=== PATIENT | male | born 1965 | race American Indian/Alaskan Native ===

== ENCOUNTER 2020-10-31 19:46 | Observation (INO) | payer BC ==
[2020-10-31] MEDS ORDERED: ASPIRIN 325 MG TAB PO ONE (20:19)
[2020-10-31 20:38] LABS: Basophils # (Auto) 0.1 K/mm3 (0.0-0.1); Basophils % (Auto) 1.6 % (0.0-1.8); Eosinophils # (Auto) 0.2 K/mm3 (0.0-0.4); Eosinophils % (Auto) 2.5 % (0.0-4.3); Hematocrit 45.1 % (35.5-45.6); Hemoglobin 15.1 gm/dl (11.8-15.2); Lymphocytes # (Auto) 2.6 K/mm3 (1.2-5.4); Lymphocytes % (Auto) 30.7 % (13.4-35.0); Mean Corpuscular HGB Conc 34 % (32-34); Mean Corpuscular Volume 91 fl (84-94); Monocytes # (Auto) 0.6 K/mm3 (0.0-0.8); Monocytes % (Auto) 7.4 % (0.0-7.3); Platelet Count 233 K/mm3 (140-440); Red Blood Count 4.94 M/mm3 (3.65-5.03); Red Cell Distribution Width 12.7 % (13.2-15.2)
--- NOTE | 2020-10-31 20:52 | XRay Report ---
CHEST 1 VIEW 10/31/2020 8:46 PM INDICATION / CLINICAL INFORMATION: Chest Pain. COMPARISON: None available. FINDINGS: SUPPORT DEVICES: None. HEART / MEDIASTINUM: No significant abnormality. LUNGS / PLEURA: No significant pulmonary or pleural abnormality. No pneumothorax. ADDITIONAL FINDINGS: No significant additional findings. IMPRESSION: 1. No acute findings. Signer Name: Benjamin Sánchez MD Signed: 10/31/2020 8:48 PM Workstation Name: [id number]
--- NOTE | 2020-10-31 20:59 | Cat Scan Report ---
CT head/brain wo con INDICATION / CLINICAL INFORMATION: 55 years Male; dizziness, chest pain. TECHNIQUE: Routine CT head without contrast. All CT scans at this location are performed using CT dos e reduction for ALARA by means of automated exposure control. COMPARISON: None. FINDINGS: BRAIN / INTRACRANIAL CONTENTS: The brain appears to demonstrate appropriate attenuation for age. The ventricular system is within normal limits in size and configuration. There is no CT evidence of acut e intracranial hemorrhage or significant mass effect. ORBITS: No significant abnormality of visualized orbits. SINUSES / MASTOIDS: No significant abnormality in the visualized paranasal sinuses or mastoid air timothy ls. CRANIOCERVICAL JUNCTION: No significant abnormality. ADDITIONAL FINDINGS: None. IMPRESSION: 1. There is no CT evidence of acute intracranial process. Signer Name: Pankaj Armstrong MD Signed: 10/31/2020 8:55 PM Workstation Name: [id number]
[2020-10-31 21:01] LABS: Alanine Aminotransferase 19 units/L (7-56); Albumin 4.3 g/dL (3.9-5); BUN/Creatinine Ratio 16; Blood Urea Nitrogen 16 mg/dL (9-20); Calcium 9.3 mg/dL (8.4-10.2); Hemolysis Index 21
--- NOTE | 2020-10-31 21:29 | Emergency Department Report ---
ED Chest Pain HPI - General Chief Complaint: Chest Pain Stated Complaint: CHEST PAIN/DIZZINESS PUI?: No Time Seen by Provider: 10/31/20 21:10 Source: patient Mode of arrival: Ambulatory Limitations: No Limitations - History of Present Illness Initial Comments: Patient is a 55-year-old male that presents emergency room with complaints of chest pain and headache. Patient states that his chest pain started at 7 PM tonight. Patient states his headache started yesterday. Patient states that he was also having some numbness and tingling in his face. Patient states he did not have any changes with a smile. Patient states he did not have any difficulty talking. Patient did not have any peripheral weakness. Patient states his chest pain is a 5 out of 10. Patient states his chest pain is in his left and right chest. Patient states the chest pain is better with rest and worse with exertion. Patient states that he has not taken his blood pressure medications for about 2 weeks. Patient states that he started taking it irregularly about 4 weeks ago and then 2 weeks ago he stopped taking his blood pressure medication altogether. Patient states that his headache is a 6 out of 10. Patient states his headache is better with rest and worse with exertion. Patient states he also had some dizziness. Patient states that dizziness is better with rest and worse with exertion and movement. Patient states his dizziness has resolved right now. Patient states he has a history of diabetes and hypertension. Patient denies recent travel. Patient denies recent international travel. Patient denies exposure to the novel coronavirus. Patient denies sick contacts. Patient denies fever and chills. Patient denies cough. Patient denies diarrhea. Patient denies coming in contact with anybody with symptoms of the n ovel coronavirus. MD Complaint: chest pain -: Sudden Onset: during rest Pain Location: substernal, left chest, right chest Pain Radiation: none Severity scale (0 -10): 5 Quality: sharp Consistency: constant Improves With: rest Worsens With: exertion re: denies: nausea, vomting, diaphoresis, dyspnea, sense of impending doom Other Symptoms: denies: cough, fever, syncope, rash, acid taste in mouth, leg swelling, palpitations, burping Treatments Prior to Arrival: none Aspirin use within the Past 7 Days: (1) Yes - Related Data On Oral Contraceptives: No Allergies Allergy/AdvReac Type Severity Reaction Status Date / Time No Known Allergies Allergy Verified 10/31/20 21:26 Heart Score - HEART Score History: Moderately suspicious EKG: Non-specific Age: 45-65 Risk factors: > 3 risk factors or hx of atherosclerotic disease Troponin: < normal limit HEART Score: 5 ED Review of Systems ROS: Stated complaint: CHEST PAIN/DIZZINESS Other details as noted in HPI Constitutional: denies: chills, fever Eyes: denies: eye pain, eye discharge, vision change ENT: denies: ear pain, throat pain Respiratory: denies: cough, shortness of breath, wheezing Cardiovascular: chest pain. denies: palpitations Endocrine: no symptoms reported Gastrointestinal: denies: abdominal pain, nausea, diarrhea Genitourinary: denies: urgency, dysuria Musculoskeletal: denies: back pain, joint swelling, arthralgia Skin: denies: rash, lesions Neurological: as per HPI, headache. denies: weakness, paresthesias Psychiatric: denies: anxiety, depression Hematological/Lymphatic: denies: easy bleeding, easy bruising ED Past Medical Hx - Past Medical History Previous Medical History?: Yes Hx Hypertension: Yes Hx Diabetes: Yes Additional medical history: Morbid Obesity. Thyroid Disease - Surgical History Past Surgical History?: No - Family History Family history: no significant - Social History Smoking Status: Never Smoker Substance Use Type: None ED Physical Exam - General Limitations: No Limitations General appearance: alert, in no apparent distress - Head Head exam: Present: atraumatic, normocephalic - Eye Eye exam: Present: normal appearance - ENT ENT exam: Present: mucous membranes moist - Neck Neck exam: Present: normal inspection - Respiratory Respiratory exam: Present: normal lung sounds bilaterally. Absent: respiratory distress, chest wall tenderness, accessory muscle use, decreased breath sounds - Cardiovascular Cardiovascular Exam: Present: regular rate, normal rhythm. Absent: systolic murmur, diastolic murmur, rubs, gallop - GI/Abdominal GI/Abdominal exam: Present: soft, normal bowel sounds. Absent: distended, tenderness, guarding - Rectal Rectal exam: Present: deferred - Extremities Exam Extremities exam: Present: normal inspection - Back Exam Back exam: Present: normal inspection - Neurological Exam Neurological exam: Present: alert, oriented X3 - Psychiatric Psychiatric exam: Present: normal affect, normal mood - Skin Skin exam: Present: warm, dry, intact, normal color. Absent: rash ED Course Vital Signs 10/31/20 10/31/20 20:15 21:19 Temperature 98.0 F Pulse Rate 82 85 Respiratory 20 19 Rate Blood Pressure 191/116 Blood Pressure 158/81 [Left] O2 Sat by Pulse 96 98 Oximetry - Reevaluation(s) Reevaluation #1: I discussed all results with patient. I discussed plan of care with patient. Patient agrees with plan of care and admission. Patient to be admitted to the hospitalist service. 10/31/20 22:09 - Consultations Consultation #1: Hospitalist consulted for admission. Hospitalist to admit patient. 10/31/20 22:09 SERA score - Sera Score Age > 65: (1) Yes Aspirin use within the Past 7 Days: (1) Yes 3 or more CAD Risk Factors: (1) Yes 2 or more Angina events in past 24 hrs: (0) No Known CAD with more than 50% Stenosis: (0) No Elevated Cardiac Markers: (0) No ST Deviation Greater than 0.5mm: (0) No SERA Score: 3 ED Medical Decision Making - Lab Data Result diagrams: 10/31/20 20:25 10/31/20 20:25 - EKG Data -: EKG Interpreted by Ca EKG shows normal: sinus rhythm, axis, intervals, QRS complexes, ST-T waves Rate: normal - Radiology Data Radiology results: report reviewed, image reviewed CHEST 1 VIEW 10/31/2020 8:46 PM INDICATION / CLINICAL INFORMATION: Chest Pain. COMPARISON: None available. FINDINGS: SUPPORT DEVICES: None. HEART / MEDIASTINUM: No significant abnormality. LUNGS / PLEURA: No significant pulmonary or pleural abnormality. No pneumothorax. ADDITIONAL FINDINGS: No significant additional findings. IMPRESSION: 1. No acute findings. CT head/brain wo con INDICATION / CLINICAL INFORMATION: 55 years Male; dizziness, chest pain. TECHNIQUE: Routine CT head without contrast. All CT scans at this location are performed using CT dose reduction for ALARA by means of automated exposure control. COMPARISON: None. FINDINGS: BRAIN / INTRACRANIAL CONTENTS: The brain appears to demonstrate appropriate attenuation for age. The ventricular system is within normal limits in size and configuration. There is no CT evidence of acute intracranial hemorrhage or significant mass effect. ORBITS: No significant abnormality of visualized orbits. SINUSES / MASTOIDS: No significant abnormality in the visualized paranasal si nuses or mastoid air cells. CRANIOCERVICAL JUNCTION: No significant abnormality. ADDITIONAL FINDINGS: None. IMPRESSION: 1. There is no CT evidence of acute intracranial process. - Medical Decision Making Patient is a 55-year-old male who presents emergency room with complaints of chest pain and headache and dizziness. Patient had a EKG done which was negative for acute findings. Patient had a chest x-ray which was negative for acute finding. Patient had a head CT for his dizziness and headache and it was negative for acute findings. Patient had a cardiac work-up and labs. Patient labs were unremarkable. Patient's troponin negative. Patient has significant cardiac risk factors and has an elevated heart score and SERA score. Patient will be admitted to the hospital service for further evaluation treatment and rule out ACS. - Differential Diagnosis ACS, chest pain, GERD, obesity, diabetes, Critical Care Time: Yes Critical care time in (mins) excluding proc time.: 35 Critical care attestation.: If time is entered above; I have spent that time in minutes in the direct care of this critically ill patient, excluding procedure time. Critical Care Time: 35 minutes ED Disposition Clinical Impression: Dizziness, Noncompliance Chest pain Qualifiers: Chest pain type: unspecified Qualified Code(s): R07.9 - Chest pain, unspecified Headache Qualifiers: Headache type: unspecified Headache chronicity pattern: acute headache Intractability: not intractable Qualified Code(s): R51.9 - Headache, unspecified Disposition: DC-09 OP ADMIT IP TO THIS HOSP Is pt being admited?: Yes Does the pt Need Aspirin: No Condition: Critical Instructions: Chest Pain (ED)
[2020-10-31] MEDS ORDERED: NITROGLYCERIN 0.4 MG TAB SUBL SL PRN (22:20)
[2020-10-31] MEDS ORDERED: MORPHINE 4 MG/1 ML INJ IV PRN (22:20)
[2020-10-31] MEDS ORDERED: ACETAMINOPHEN 325 MG TAB PO PRN (22:20)
--- NOTE | 2020-10-31 22:28 | History and Physical Report ---
History of Present Illness Date of examination: 10/31/20 Chief complaint: Chest pain Headache History of present illness: 55 years old male with history of diabetes and high blood pressure was brought to the hospital because of chest pain and headache. As per the patient chest pain is started at 7 PM chest pain is 5/10 radiating to the left hand and the right chest. Chest pain is better with rest and worse with exertion. Patient also complained of headache 6 out of 10 . Patient is not taking blood pressure medication for the last 4 weeks and then 2 weeks ago he is stopped taking his blood pressure medication. Patient also complained of some dizziness. Also complains some numbness and tingling in the face. Patient states that he did not have any changes with his smile. Initial CT scan of the head shows no acute intracranial abnormality Past History Past Medical History: diabetes, hypertension Medications and Allergies Allergies Allergy/AdvReac Type Severity Reaction Status Date / Time No Known Allergies Allergy Verified 10/31/20 21:26 Review of Systems Cardiovascular: chest pain, lightheadedness Exam - Constitutional Vitals: Temp Pulse Resp BP Pulse Ox 98.0 F 85 19 158/81 98 10/31/20 20:15 10/31/20 21:19 10/31/20 21:19 10/31/20 21:19 10/31/20 21:19 General appearance: Present: no acute distress, well-nourished - EENT Eyes: Present: PERRL ENT: hearing intact, clear oral mucosa - Neck Neck: Present: supple, normal ROM - Respiratory Respiratory effort: normal Respiratory: bilateral: CTA, diminished - Cardiovascular Heart Sounds: Present: S1 & S2. Absent: rub, click - Extremities Extremities: pulses symmetrical, No edema Peripheral Pulses: within normal limits - Abdominal General gastrointestinal: Present: soft, non-tender, non-distended, normal bowel sounds Male genitourinary: Present: normal - Integumentary Integumentary: Present: clear, warm, dry - Musculoskeletal Musculoskeletal: gait normal, strength equal bilaterally - Psychiatric Psychiatric: appropriate mood/affect, intact judgment & insight - Neurologic Neurologic: CNII-XII intact, moves all extremities HEART Score - HEART Score EKG: Non-specific Age: 45-65 Risk factors: > 3 risk factors or hx of atherosclerotic disease Troponin: Troponin T < 0.010 ng/mL (0.00-0.029) 10/31/20 20:25 Troponin: < normal limit Results - Labs CBC & Chem 7: 10/31/20 20:25 10/31/20 20:25 Labs: Laboratory Last Values WBC 8.5 K/mm3 (4.5-11.0) 10/31/20 20:25 RBC 4.94 M/mm3 (3.65-5.03) 10/31/20 20:25 Hgb 15.1 gm/dl (11.8-15.2) 10/31/20 20:25 Hct 45.1 % (35.5-45.6) 10/31/20 20:25 MCV 91 fl (84-94) 10/31/20 20:25 MCH 31 pg (28-32) 10/31/20 20:25 MCHC 34 % (32-34) 10/31/20 20:25 RDW 12.7 % (13.2-15.2) L 10/31/20 20:25 Plt Count 233 K/mm3 (140-440) 10/31/20 20:25 Lymph % (Auto) 30.7 % (13.4-35.0) 10/31/20 20:25 [place]ette % (Auto) 7.4 % (0.0-7.3) H 10/31/20 20:25 Eos % (Auto) 2.5 % (0.0-4.3) 10/31/20 20:25 Baso % (Auto) 1.6 % (0.0-1.8) 10/31/20 20:25 Lymph # (Auto) 2.6 K/mm3 (1.2-5.4) 10/31/20 20:25 [place] # (Auto) 0.6 K/mm3 (0.0-0.8) 10/31/20 20:25 Eos # (Auto) 0.2 K/mm3 (0.0-0.4) 10/31/20 20:25 Baso # (Auto) 0.1 K/mm3 (0.0-0.1) 10/31/20 20:25 Seg Neutrophils % 57.8 % (40.0-70.0) 10/31/20 20:25 Seg Neutrophils # 4.9 K/mm3 (1.8-7.7) 10/31/20 20:25 Sodium 139 mmol/L (137-145) 10/31/20 20:25 Potassium 3.6 mmol/L (3.6-5.0) 10/31/20 20:25 Chloride 102.8 mmol/L (98-107) 10/31/20 20:25 Carbon Dioxide 25 mmol/L (22-30) 10/31/20 20:25 Anion Gap 15 mmol/L 10/31/20 20:25 BUN 16 mg/dL (9-20) 10/31/20 20:25 Creatinine 1.0 mg/dL (0.8-1.3) 10/31/20 20:25 Estimated GFR > 60 ml/min 10/31/20 20:25 BUN/Creatinine Ratio 16 % 10/31/20 20:25 Glucose 153 mg/dL (75-100) H 10/31/20 20:25 Calcium 9.3 mg/dL (8.4-10.2) 10/31/20 20:25 Total Bilirubin 0.30 mg/dL (0.1-1.2) 10/31/20 20:25 AST 18 units/L (5-40) 10/31/20 20:25 ALT 19 units/L (7-56) 10/31/20 20:25 Alkaline Phosphatase 72 units/L (35-129) 10/31/20 20:25 Troponin T < 0.010 ng/mL (0.00-0.029) 10/31/20 20:25 Total Protein 7.2 g/dL (6.3-8.2) 10/31/20 20:25 Albumin 4.3 g/dL (3.9-5) 10/31/20 20:25 Albumin/Globulin Ratio 1.5 % 10/31/20 20:25 - Imaging and Cardiology Chest x-ray: image reviewed CT Scan - head: image reviewed Assessment and Plan - Patient Problems (1) Chest pain Current Visit: Yes Status: Acute Qualifiers: Chest pain type: unspecified Qualified Code(s): R07.9 - Chest pain, unspecified Plan to address problem: Admit the patient to the cardiac telemetry. Put the patient on chest pain pathway. Aspirin 325 mg p.o. daily. Lipitor 40 mg p.o. daily. Due to the serial cardiac enzyme. We will also do a Lexiscan and consult cardiology for evaluation. Heparin 5000 units subcu every 8 hours for DVT prophylaxis and Protonix 40 mg p.o. daily for GI prophylaxis (2) Dizziness Current Visit: Yes Status: Acute Plan to address problem: Aspirin 325 mg p.o. daily. Lipitor 40 mg p.o. daily. Due to the serial cardiac enzyme. We will also do a Lexiscan and consult cardiology for evaluation. (3) Headache Current Visit: Yes Status: Acute Qualifiers: Headache type: unspecified Headache chronicity pattern: acute headache Intractability: not intractable Qualified Code(s): R51.9 - Headache, unspecified Plan to address problem: Initial CT scan of the head shows no acute intracranial abnormality. Tylenol 650 mg p.o. every 6 as needed. Morphine 1 to 2 mg IV every 4 hours as needed. We will monitor the blood pressure closely. If needed will do MRI of the brain without contrast
[2020-10-31 23:47] LABS: Basophils # (Auto) 0.1 K/mm3 (0.0-0.1); Basophils % (Auto) 0.7 % (0.0-1.8); Eosinophils # (Auto) 0.2 K/mm3 (0.0-0.4); Eosinophils % (Auto) 2.1 % (0.0-4.3); Hematocrit 42.7 % (35.5-45.6); Hemoglobin 14.8 gm/dl (11.8-15.2); Lymphocytes # (Auto) 2.5 K/mm3 (1.2-5.4); Lymphocytes % (Auto) 30.6 % (13.4-35.0); Mean Corpuscular HGB Conc 35 % (32-34); Mean Corpuscular Volume 90 fl (84-94); Monocytes # (Auto) 0.6 K/mm3 (0.0-0.8); Monocytes % (Auto) 7.2 % (0.0-7.3); Platelet Count 234 K/mm3 (140-440); Red Blood Count 4.73 M/mm3 (3.65-5.03); Red Cell Distribution Width 13.1 % (13.2-15.2)
[2020-11-01 00:04] LABS: BUN/Creatinine Ratio 15; Blood Urea Nitrogen 17 mg/dL (9-20); Calcium 9.4 mg/dL (8.4-10.2); Hemolysis Index 15
[2020-11-01] MEDS ORDERED: hydrALAZINE 20 MG/1 ML INJ ONE (00:07)
[2020-11-01 00:44] LABS: Chol/HDL Ratio 4.92 %; HDL Cholesterol 27 mg/dL (40-59); LDL Cholesterol,Direct TNR mg/dL (50-130)
[2020-11-01] MEDS: hydrALAZINE 20 MG/1 ML INJ IV SCH ×2 (01:19→11:09)
[2020-11-01] MEDS: HEPARIN 5,000 UNIT/1 ML VIAL SUB-Q SCH ×2 (06:02→16:53)
[2020-11-01] MEDS ORDERED: REGADENOSON 0.4 MG/5 ML INJ IV ONE (08:39)
[2020-11-01] MEDS ORDERED: LISINOPRIL 5 MG TAB PO SCH (10:00)
[2020-11-01] MEDS ORDERED: ASPIRIN EC 325 MG TAB PO SCH (10:00)
--- NOTE | 2020-11-01 11:27 | Treadmill Report ---
NUCLEAR PERFUSION SCAN REFERRING PHYSICIAN: Hospitalist service PROTOCOL: The patient was brought to the stress lab in postabsorptive state, given 10 mCi of technetium 99m at rest. The patient underwent rest imaging. The patient underwent Lexiscan stress test per standard protocol. At peak stress, the patient was given 26 mCi payroll technician 99m. Shortly thereafter, the patient underwent stress imaging. Interpretation technically difficult study due to body habitus and subdiaphragmatic activity. Grossly, there is no evidence of a significant fixed or reversible perfusion defects suggestive of prior infarction or ischemia. Gated wall motion reveals normal systolic thickening, calculated ejection fraction of 51%, no TID. CONCLUSIONS: 1. Technically difficult and limited study, but grossly probably normal without evidence of significant degree of ischemia or prior infarction. 2. Normal left ventricular systolic performance without evidence of transient ischemic dilatation or stress-induced segmental wall motion abnormalities. JOB# [id number] SBM/NTS
[2020-11-01 13:22] VITALS: BP 149/86
--- NOTE | 2020-11-01 13:43 | Discharge Summary ---
Providers - Providers Date of Admission: 10/31/20 22:09 Date of discharge: 11/01/20 Attending physician: FLAKITA PAEZ 10/31/20 Consult to Cardiac Rehabilitation [CONS] Routine Reason For Exam: Phase I 10/31/20 22:21 Consult to Cardiology [CONS] Routine Consulting Provider: NNAMDI MACHADO Reason For Exam: cp Primary care physician: [employer] Hospitalization Condition: Critical Hospital course: 55 years old male with history of diabetes and high blood pressure was brought to the hospital because of chest pain and headache. As per the patient chest pain is started at 7 PM chest pain is 5/10 radiating to the left hand and the right chest. Chest pain is better with rest and worse with exertion. Patient also complained of headache 6 out of 10 . Patient is not taking blood pressure medication for the last 4 weeks and then 2 weeks ago he is stopped taking his blood pressure medication. Patient also complained of some dizziness. Also complains some numbness and tingling in the face. Patient states that he did not have any changes with his smile. Initial CT scan of the head shows no acute intracranial abnormality. His labs showed normal troponin. He was admitted for chest pain rule out His stress test is negative for any significant reversible ischemia. He mentions he has not been taking his medications as [facility]. His symptoms have completely resolved. His BP is stable. His echo is normal. 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 He is currently stable to be discharged home. Disposition: - TO HOME OR SELFCARE Time spent for discharge: 20 mins - Discharge Diagnoses (1) Chest pain Status: Acute Qualifiers: Chest pain type: unspecified Qualified Code(s): R07.9 - Chest pain, unspecified (2) Headache Status: Acute Qualifiers: Headache type: unspecified Headache chronicity pattern: acute headache Intractability: not intractable Qualified Code(s): R51.9 - Headache, unspecified (3) Noncompliance Status: Acute Core Measure Documentation - Palliative Care Palliative Care/ Comfort Measures: Not Applicable - Core Measures Any of the following diagnoses?: none Exam - Constitutional Vitals: Temp Pulse Resp BP Pulse Ox 97.9 F 63 20 149/86 94 11/01/20 13:14 11/01/20 13:14 11/01/20 13:14 11/01/20 13:14 11/01/20 13:14 General appearance: Present: no acute distress, well-nourished - EENT Eyes: Present: PERRL ENT: hearing intact, clear oral mucosa - Neck Neck: Present: supple, normal ROM - Respiratory Respiratory effort: normal Respiratory: bilateral: CTA - Cardiovascular Heart Sounds: Present: S1 & S2. Absent: rub, click - Extremities Extremities: pulses symmetrical, No edema Peripheral Pulses: within normal limits - Abdominal General gastrointestinal: Present: soft, non-tender, non-distended, normal bowel sounds Male genitourinary: Present: normal - Integumentary Integumentary: Present: clear, warm, dry - Musculoskeletal Musculoskeletal: gait normal, strength equal bilaterally - Psychiatric Psychiatric: appropriate mood/affect, intact judgment & insight - Neurologic Neurologic: CNII-XII intact, moves all extremities Plan Additional Instructions: Continue home medications. Follow up with Dr Zaldivar ([employer]) in 2 weeks ([phone]). Follow up with your primary medical doctor in 1-2 weeks Follow up with: ONEYDA SHETTY MD [Primary Care Provider] - 3-5 Days JOHANA ZALDIVAR MD [Staff Physician] - 7 Days
--- NOTE | 2020-11-01 14:13 | Consultation ---
History of Present Illness Consult date: 11/01/20 Requesting physician: GAGAN JARAMILLO Consult reason: chest pain History of present illness: The patient is a 55-year-old male with past medical history of HTN and DM. He is previously unknown to our practice. He presented with c/o chest pain and headache. Patient states that his chest pain started at 7 PM last night and headache started yesterday. Patient states that he was also having some numbness and tingling in his face. Pt describes his chest pain as an intermittent midsternal pain with no clear aggravating or alleviating factors. Patient states he also had some dizziness. He denies any SOB, palpitations, n/v, diaphoresis or syncope. Patient states that he has not taken his blood pressure medications for about 2 weeks. Patient states that he started taking it irregularly about 4 weeks ago and then 2 weeks ago he stopped taking his blood pressure medication altogether. Admission BP 191/116. Past History Past Medical History: diabetes, hypertension Medications and Allergies Allergies Allergy/AdvReac Type Severity Reaction Status Date / Time No Known Allergies Allergy Verified 10/31/20 21:26 Home Medications Medication Instructions Recorded Confirmed Last Taken Type Chlorthalidone [Thalitone] 25 mg PO DAILY 11/01/20 11/01/20 Unknown History Losartan Potassium 100 mg PO DAILY 11/01/20 11/01/20 Unknown History Nebivolol HCl [Bystolic] 5 mg PO QDAY 11/01/20 11/01/20 Unknown History allopurinoL [Zyloprim] 100 mg PO QDAY 11/01/20 11/01/20 Unknown History metFORMIN [Glucophage] 500 mg PO DAILY 11/01/20 11/01/20 Unknown History Active Meds: Active Medications Acetaminophen (Acetaminophen 325 Mg Tab) 650 mg PO Q6H PRN PRN Reason: Pain, Mild (1-3) Aspirin (Aspirin Ec 325 Mg Tab) 325 mg PO QDAY [facility] Last Admin: 11/01/20 11:09 Dose: Not Given Documented by: Atorvastatin Calcium (Atorvastatin 40 Mg Tab) 40 mg PO QHS [facility] Heparin Sodium (Porcine) (Heparin 5,000 Unit/1 Ml Vial) 5,000 unit SUB-Q Q8HR [facility] Last Admin: 11/01/20 06:02 Dose: 5,000 unit Documented by: Hydralazine HCl (Hydralazine 20 Mg/1 Ml Inj) 10 mg IV Q8H [facility] Last Admin: 11/01/20 11:09 Dose: Not Given Documented by: Lisinopril (Lisinopril 5 Mg Tab) 5 mg PO QDAY [facility] Last Admin: 11/01/20 11:09 Dose: Not Given Documented by: Morphine Sulfate (Morphine 4 Mg/1 Ml Inj) 2 mg IV Q5MIN PRN PRN Reason: Chest Pain Nitroglycerin (Nitroglycerin 0.4 Mg Tab Subl) 0.4 mg SL Q5M PRN PRN Reason: Chest Pain Sodium Chloride (Sodium Chloride 0.9% 10 Ml Flush Syringe) 10 ml IV PRN PRN PRN Reason: LINE FLUSH Review of Systems Constitutional: no weight loss, no weight gain, no fever, no chills, no sweats Ears, nose, mouth and throat: no ear pain, no nose pain, no sinus pressure, no sinus pain Cardiovascular: chest pain, high blood pressure, no orthopnea, no palpitations, no rapid/irregular heart beat, no edema, no syncope, no lightheadedness, no shortness of breath, no dyspnea on exertion Respiratory: no cough, no shortness of breath, no dyspnea on exertion, no congestion, no wheezing, no pain on inspiration Gastrointestinal: no abdominal pain, no nausea, no vomiting, no diarrhea, no constipation, no change in bowel habits Genitourinary Male: no dysuria, no hematuria, no flank pain, no discharge, no urinary frequency, no urinary hesitancy Musculoskeletal: no neck stiffness, no neck pain, no shooting arm pain, no arm numbness/tingling, no low back pain, no shooting leg pain Integumentary: no rash, no pruritis, no redness, no sores, no wounds Neurological: headaches, no head injury, no paralysis, no seizures, no syncope Psychiatric: no anxiety Endocrine: no cold intolerance, no heat intolerance Hematologic/Lymphatic: no easy bruising, no easy bleeding Allergic/Immunologic: no urticaria Physical Examination Vital Signs Temp Pulse Resp BP Pulse Ox 98.0 F 82 20 191/116 96 10/31/20 20:15 10/31/20 20:15 10/31/20 20:15 10/31/20 20:15 10/31/20 20:15 General appearance: no acute distress HEENT: Positive: PERRL, Normocephaly, Mucus Membranes Moist Neck: Positive: neck supple, trachea midline Cardiac: Positive: Reg Rate and Rhythm, S1/S2 Lungs: Positive: Decreased Breath Sounds Neuro: Positive: Grossly Intact Abdomen: Negative: Tender Skin: Negative: Rash Musculoskeletal: No Pain Extremities: Absent: edema Results 10/31/20 23:20 10/31/20 23:20 Cardiac Enzymes 10/31/20 Range/Units 20:25 AST 18 (5-40) units/L Lipids 10/31/20 Range/Units 23:20 Triglycerides 576 H (2-149) mg/dL Cholesterol 133 (50-199) mg/dL HDL Cholesterol 27 L (40-59) mg/dL Cholesterol/HDL Ratio 4.92 % CBC 10/31/20 10/31/20 Range/Units 20:25 23:20 WBC 8.5 8.2 (4.5-11.0) K/mm3 RBC 4.94 4.73 (3.65-5.03) M/mm3 Hgb 15.1 14.8 (11.8-15.2) gm/dl Hct 45.1 42.7 (35.5-45.6) % Plt Count 233 234 (140-440) K/mm3 Lymph # (Auto) 2.6 2.5 (1.2-5.4) K/mm3 Jackson # (Auto) 0.6 0.6 (0.0-0.8) K/mm3 Eos # (Auto) 0.2 0.2 (0.0-0.4) K/mm3 Baso # (Auto) 0.1 0.1 (0.0-0.1) K/mm3 Comprehensive Metabolic Panel 10/31/20 10/31/20 Range/Units 20:25 23:20 Sodium 139 139 (137-145) mmol/L Potassium 3.6 3.8 (3.6-5.0) mmol/L Chloride 102.8 102.6 (98-107) mmol/L Carbon Dioxide 25 27 (22-30) mmol/L BUN 16 17 (9-20) mg/dL Creatinine 1.0 1.1 (0.8-1.3) mg/dL Glucose 153 H 135 H (75-100) mg/dL Calcium 9.3 9.4 (8.4-10.2) mg/dL AST 18 (5-40) units/L ALT 19 (7-56) units/L Alkaline Phosphatase 72 (35-129) units/L Total Protein 7.2 (6.3-8.2) g/dL Albumin 4.3 (3.9-5) g/dL - Imaging and Cardiology Echo: pending EKG: report reviewed, image reviewed EKG interpretations - Telemetry EKG Rhythm: Sinus Rhythm - EKG Sinus rhythms and dysrhythmias: sinus rhythm AV and intraventricular conduction: right bundle branch block, left anterior fascicular Assessment and Plan Chest pain currently resolved. AMI r/o. S/p lexiscan MPI stress today which was negative. Preliminary echo imaging shows EF 55-60%, mild AI, trace MR/TR/VT. Currently stable cardiac status. Optimize anti-hypertensive regimen. Pt may discharge from cardiology standpoint. Recommend pt follow up in our office with Dr. Ubaldo Vickers within 2 weeks of discharge ([phone]). The patient has been seen in conjunction with Dr. Ubaldo Vickers who agrees with the assessment and plan of care. - Patient Problems (1) Chest pain Current Visit: Yes Status: Acute Qualifiers: Chest pain type: unspecified Qualified Code(s): R07.9 - Chest pain, unspecified (2) Headache Current Visit: Yes Status: Acute Qualifiers: Headache type: unspecified Headache chronicity pattern: acute headache Intractability: not intractable Qualified Code(s): R51.9 - Headache, unspecified (3) Uncontrolled hypertension Current Visit: Yes Status: Chronic (4) Diabetes Current Visit: Yes Status: Chronic (5) Medical non-compliance Current Visit: Yes Status: Chronic (6) Obesity Current Visit: Yes Status: Chronic (7) RBBB Current Visit: Yes Status: Acute
== END 2020-11-01 18:34 | disposition home or self-care (01) ==
LOC: ED 19:46 → 4A 22:09
PROVIDERS: ADMIT Hospitalist; ATTEND Internal Medicine
DX: R07.89 Other chest pain (principal); R42 Dizziness and giddiness; R51.9 Headache, unspecified; I10 Essential (primary) hypertension; E11.9 Type 2 diabetes mellitus without complications; E66.9 Obesity, unspecified; I45.10 Unspecified right bundle-branch block; Z91.14 Patient's other noncompliance with medication regimen; Z79.84 Long term (current) use of oral hypoglycemic drugs; Z79.82 Long term (current) use of aspirin; Z68.42 Body mass index [BMI] 45.0-49.9, adult
CPT/HCPCS: 36415; 70450; 71045; 78452; 80053; 80061; 82962; 84484; 85025; 93005; 93017; 93306; 96372; 96374; 99291; A9502; G0378; J0360; J1644; J2785; 80048

== ENCOUNTER 2021-10-28 11:07 | Emergency (ER) | payer BC, OTHER ==
[2021-10-28 11:13] VITALS: BP 174/89
[2021-10-28] MEDS ORDERED: ASPIRIN 325 MG TAB PO ONE (11:29)
--- NOTE | 2021-10-28 12:16 | XRay Report ---
CHEST 2 VIEWS INDICATION: Chest Pain. COMPARISON: 10/31/2020 FINDINGS: Support devices: None. Heart: Within normal limits. Lungs/pleura: No acute air space or interstitial disease. No pneumothorax. Additional findings: None. IMPRESSION: No acute findings. No change since 10/31/2020. Signer Name: Nilay Torrez Jr, MD Signed: 10/28/2021 12:11 PM Workstation Name: [id number]
[2021-10-28 12:57] LABS: Basophils # (Auto) 0.1 K/mm3 (0.0-0.1); Basophils % (Auto) 1.4 % (0.0-1.8); Eosinophils # (Auto) 0.2 K/mm3 (0.0-0.4); Eosinophils % (Auto) 3.1 % (0.0-4.3); Hematocrit 47.4 % (35.5-45.6); Lymphocytes # (Auto) 1.2 K/mm3 (1.2-5.4); Mean Corpuscular HGB Conc 32 % (32-34); Mean Corpuscular Volume 90 fl (84-94); Monocytes # (Auto) 0.4 K/mm3 (0.0-0.8); Monocytes % (Auto) 7.8 % (0.0-7.3); Platelet Count 241 K/mm3 (140-440); Red Blood Count 5.29 M/mm3 (3.65-5.03); Red Cell Distribution Width 15.3 % (13.2-15.2)
[2021-10-28 13:03] LABS: INR 0.85 (0.87-1.13)
[2021-10-28 13:04] LABS: Bilirubin,Urine NEG (Negative); Blood,Urine NEG (Negative); Color,Urine Yellow (Yellow); Urobilinogen,Urine < 2.0 mg/dL (<2.0)
[2021-10-28 13:08] LABS: RBC,Urine < 1.0 /HPF (0.0-6.0); WBC,Urine < 1.0 /HPF (0.0-6.0)
[2021-10-28 13:22] LABS: Alanine Aminotransferase 21 units/L (7-56); Albumin 4.6 g/dL (3.9-5); BUN/Creatinine Ratio 18; Blood Urea Nitrogen 16 mg/dL (9-20); Calcium 9.4 mg/dL (8.4-10.2); Hemolysis Index 16
--- NOTE | 2021-10-28 15:25 | Emergency Department Report ---
ED Chest Pain HPI - General Chief Complaint: Chest Pain Stated Complaint: CHEST PAINS Time Seen by Provider: 10/28/21 11:20 Source: patient Mode of arrival: Ambulatory Limitations: No Limitations - Related Data Home Medications Medication Instructions Recorded Confirmed Last Taken Chlorthalidone [Thalitone] 25 mg PO DAILY 11/01/20 11/01/20 Unknown Losartan Potassium 100 mg PO DAILY 11/01/20 11/01/20 Unknown Nebivolol HCl [Bystolic] 5 mg PO QDAY 11/01/20 11/01/20 Unknown allopurinoL [Zyloprim] 100 mg PO QDAY 11/01/20 11/01/20 Unknown metFORMIN [Glucophage] 500 mg PO DAILY 11/01/20 11/01/20 Unknown Allergies Allergy/AdvReac Type Severity Reaction Status Date / Time No Known Allergies Allergy Verified 10/28/21 11:13 Heart Score - HEART Score History: Slightly suspicious EKG: Non-specific Age: 45-65 Risk factors: 1-2 risk factors Troponin: < normal limit HEART Score: 3 - EKG Read Time Time EKG Completed: 15:38 EKG Read Time: 15:38 - Critical Actions Critical Actions: 0-3 pts:0.9-1.7%risk of adverse cardiac event.Candidate for discharge ED Review of Systems ROS: Stated complaint: CHEST PAINS Other details as noted in HPI Constitutional: denies: chills, fever Eyes: denies: eye pain, eye discharge, vision change ENT: denies: ear pain, throat pain Respiratory: denies: cough, shortness of breath, wheezing Cardiovascular: denies: chest pain, palpitations Endocrine: no symptoms reported Gastrointestinal: denies: abdominal pain, nausea, diarrhea Genitourinary: denies: urgency, dysuria Musculoskeletal: denies: back pain, joint swelling, arthralgia Skin: denies: rash, lesions Neurological: denies: headache, weakness, paresthesias Psychiatric: denies: anxiety, depression Hematological/Lymphatic: denies: easy bleeding, easy bruising ED Past Medical Hx - Past Medical History Hx Hypertension: Yes Hx Diabetes: Yes Additional medical history: Morbid Obesity. Thyroid Disease - Social History Smoking Status: Never Smoker Substance Use Type: None - Medications Home Medications: Home Medications Medication Instructions Recorded Confirmed Last Taken Type Chlorthalidone [Thalitone] 25 mg PO DAILY 11/01/20 11/01/20 Unknown History Losartan Potassium 100 mg PO DAILY 11/01/20 11/01/20 Unknown History Nebivolol HCl [Bystolic] 5 mg PO QDAY 11/01/20 11/01/20 Unknown History allopurinoL [Zyloprim] 100 mg PO QDAY 11/01/20 11/01/20 Unknown History metFORMIN [Glucophage] 500 mg PO DAILY 11/01/20 11/01/20 Unknown History ED Physical Exam - General Limitations: No Limitations General appearance: alert, in no apparent distress - Head Head exam: Present: atraumatic, normocephalic - Eye Eye exam: Present: normal appearance - ENT ENT exam: Present: mucous membranes moist - Neck Neck exam: Present: normal inspection - Respiratory Respiratory exam: Present: normal lung sounds bilaterally. Absent: respiratory distress - Cardiovascular Cardiovascular Exam: Present: regular rate, normal rhythm. Absent: systolic murmur, diastolic murmur, rubs, gallop - GI/Abdominal GI/Abdominal exam: Present: soft, normal bowel sounds - Rectal Rectal exam: Present: deferred - Extremities Exam Extremities exam: Present: normal inspection - Back Exam Back exam: Present: normal inspection - Neurological Exam Neurological exam: Present: alert, oriented X3 - Psychiatric Psychiatric exam: Present: normal affect, normal mood - Skin Skin exam: Present: warm, dry, intact, normal color. Absent: rash ED Course Vital Signs 10/28/21 11:11 Temperature 98 F Pulse Rate 69 Respiratory 16 Rate Blood Pressure 174/89 [Left] O2 Sat by Pulse 95 Oximetry - Reevaluation(s) Reevaluation #1: 10/28/21 15:16 work up neg , ekg ot changed, repeat trop is negative had negative stress test last year will see his pcpc this week SERA score - Sera Score Age > 65: (1) Yes Aspirin use within the Past 7 Days: (1) Yes 3 or more CAD Risk Factors: (1) Yes 2 or more Angina events in past 24 hrs: (0) No Known CAD with more than 50% Stenosis: (0) No Elevated Cardiac Markers: (0) No ST Deviation Greater than 0.5mm: (0) No SERA Score: 3 ED Medical Decision Making - Lab Data Result diagrams: 10/28/21 12:39 10/28/21 12:39 Critical care attestation.: If time is entered above; I have spent that time in minutes in the direct care of this critically ill patient, excluding procedure time. ED Disposition Clinical Impression: Chest pain Disposition: HOME / SELF CARE / HOMELESS Is pt being admited?: No Does the pt Need Aspirin: No Condition: Stable Instructions: Nonspecific Chest Pain, Adult, Nonspecific Chest Pain, Adult, [id number] Referrals: RICH ESCOBAR MD [Primary Care Provider] - 3-5 Days
--- NOTE | 2021-10-29 08:49 | Electrocardiograph Report ---
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
== END 2021-10-28 16:26 | disposition home or self-care (01) ==
LOC: ED 11:07
DX: R07.9 Chest pain, unspecified (principal); I10 Essential (primary) hypertension; E11.9 Type 2 diabetes mellitus without complications; Z79.899 Other long term (current) drug therapy
CPT/HCPCS: 36415; 71046; 80053; 81001; 83690; 84484; 85025; 85610; 93005; 93010; 99284